=== PATIENT | female | born 1970 | race Caucasian/White ===

== ENCOUNTER 2019-03-03 07:12 | Day surgery (SDC) | payer BC ==
[2019-03-03] MEDS ORDERED: PROPOFOL 60 ML (08:37)
== END 2019-03-03 10:26 | disposition home or self-care (01) ==
LOC: GIL 07:12
DX: K64.8 Other hemorrhoids (principal); K21.9 Gastro-esophageal reflux disease without esophagitis; K29.50 Unspecified chronic gastritis without bleeding; I10 Essential (primary) hypertension; E11.9 Type 2 diabetes mellitus without complications; Z87.891 Personal history of nicotine dependence; Z79.4 Long term (current) use of insulin
CPT/HCPCS: 43239; 82962; 84703; 88305; 88312